=== PATIENT | female | born 1950 | race Hispanic/Latino ===

== ENCOUNTER 2019-11-03 06:55 | Inpatient (IN) | payer MEDICARE, OTHER ==
[2019-10-30 10:32] LABS: BASOPHILS % 0.5 % (0.0-1.0); EOSINOPHILS # (AUTO) 0.2 (0.0-0.4); EOSINOPHILS % 4.4 % (0.0-6.0); HEMATOCRIT 35.8 % (34.2-44.1); LYMPHOCYTES # (AUTO) 1.6 (1.0-3.2); LYMPHOCYTES % 38.5 % (18.0-39.1); MEAN CORPUSCULAR HEMOGLOBIN 30.8 pg (28-32); MEAN CORPUSCULAR HGB CONC 33.5 g/dL (31-35); MONOCYTES # (AUTO) 0.4 (0.2-0.8); MONOCYTES % 8.9 % (4.4-11.3); NEUTROPHILS # (AUTO) 1.9 (2.1-6.9); NEUTROPHILS % 47.5 % (38.7-80.0); PLATELET COUNT 334 x10e3/uL (140-360); RED BLOOD COUNT 3.89 x10e6/uL (3.6-5.1)
[2019-10-30 11:06] LABS: ALANINE AMINOTRANSFERASE 15 IU/L (0-55); ALBUMIN 4.5 g/dL (3.5-5.0); ALBUMIN/GLOBULIN RATIO 1.6 (0.8-2.0); ALKALINE PHOSPHATASE 89 IU/L (40-150); ANION GAP 12.5 mmol/L (8-16); BLOOD UREA NITROGEN 9 mg/dL (7-26); BUN/CREATININE RATIO 13 (6-25); CALCIUM 9.3 mg/dL (8.4-10.2); CARBON DIOXIDE 26 mmol/L (22-29); CHLORIDE 104 mmol/L (98-107); EST GLOMERULAR FILTRATION RATE > 60 ML/MIN (60-); GLUCOSE 111 mg/dL (74-118); POTASSIUM 4.5 mmol/L (3.5-5.1); SODIUM 138 mmol/L (136-145)
[~2019-11-03] VITALS: Ht 152.4 cm; Wt 63.0 kg
[~2019-11-03 06:55] MED LIST: AMLODIPINE BESY10 MG PO; AMLODIPINE BESYL5 MG PO; ATORVASTATIN CA20 MG PO; LOSARTAN POTAS100 MG PO; METFORMIN HCL500 MG PO; PROBIOTIC & AC1 EACH PO; VITAMIN D3250 MCG PO
[2019-11-03] MEDS ORDERED: METFORMIN HCL500 MG PO (08:27)
[2019-11-03] MEDS ORDERED: ESTROGENS CONJUGATED VAGINAL CR 45 GM TUBE PV ONE (08:45)
[2019-11-03] MEDS ORDERED: BUPIVACAINE 0.25% 30ML SDV INJ ONE ×2 (08:45→10:37)
[2019-11-03] MEDS ORDERED: CEFAZOLIN SOD 1 GM/NS 50ML 100 ML IV ONE (08:47)
[2019-11-03] MEDS ORDERED: ONDANSETRON HCL INJ 2MG/ML 2ML 2 MG/ML VIAL IV PRN (09:15)
[2019-11-03] MEDS ORDERED: DEXTROSE 50% SYRINGE 50 ML IV PRN (09:15)
[2019-11-03] MEDS ORDERED: DOCUSATE SODIUM 100 MG CAP PO PRN (09:15)
[2019-11-03] MEDS ORDERED: MEPERIDINE HCL INJ 25 MG/ML VIAL IV PRN (09:15)
[2019-11-03] MEDS ORDERED: ZOLPIDEM TARTRATE 5 MG TAB PO PRN (09:15)
[2019-11-03] MEDS ORDERED: DIPHENHYDRAMINE HCL 25 MG CAP PO PRN (09:15)
[2019-11-03] MEDS ORDERED: LEVOFLOXACIN 500MG/D5W 100ML 100 ML IV SCH ×2 (09:15→17:00)
[2019-11-03] MEDS ORDERED: PROMETHAZINE HCL (IM) 25 MG/ML VIAL IM PRN (09:15)
[2019-11-03] MEDS ORDERED: PROMETHAZINE 12.5MG/ NACL 0.9% 50 ML IV PRN (10:00)
[2019-11-03] MEDS ORDERED: FENTANYL CITRATE/PF 100MCG/2 ML INJ ONE ×2 (11:23→13:06)
[2019-11-03] MEDS ORDERED: MIDAZOLAM HCL 2 MG/2 ML VIAL ONE (13:06)
[2019-11-03 13:28] VITALS: BP 129/49
[2019-11-03 13:29] VITALS: BP 129/49
[2019-11-03] MEDS: LACTATED RINGER'S 1,000 ML IV SCH ×2 (14:02→17:15)
[2019-11-03 16:08] VITALS: BP 129/69
[2019-11-03] MEDS: HYDROCODONE/APAP 5MG-325MG TAB PO PRN (16:45)
[2019-11-03] MEDS ORDERED: PROPOFOL IV EMULSION 10 MG/ML 20 ML VIAL ONE (19:24)
[2019-11-03] MEDS ORDERED: NEOSTIGMINE 1 MG/ML 10ML VIAL ONE (19:24)
[2019-11-03] MEDS ORDERED: LIDOCAINE HCL 2% LOCAL INJ 5 ML SDV VIAL INJ ONE (19:24)
[2019-11-03] MEDS ORDERED: GLYCOPYRROLATE INJ 0.2 MG/ML VIAL ONE (19:24)
[2019-11-03] MEDS ORDERED: ROCURONIUM BROMIDE 10 MG/ML 5ML VIAL IV ONE (19:24)
[2019-11-03] MEDS ORDERED: ONDANSETRON HCL INJ 2MG/ML 2ML 2 MG/ML VIAL ONE (19:24)
[2019-11-03] MEDS ORDERED: DEXAMETHASONE SOD PHOS INJ 4 MG/ML VIAL ONE (19:24)
[2019-11-03] MEDS ORDERED: KETOROLAC TROMETHAMINE 30 MG/ML VIAL ONE (19:24)
[2019-11-03] MEDS ORDERED: SEVOFLURANE INHAL SOLN 250 ML PEN BTL ONE (19:24)
[2019-11-03 20:00] VITALS: BP 102/56
[2019-11-03 23:08] VITALS: BP 102/56
[2019-11-04] VITALS (8 sets, daily range): BP systolic 104–125; BP diastolic 47–57
[2019-11-04] MEDS: LACTATED RINGER'S 1,000 ML IV SCH ×3 (00:52→17:15)
[2019-11-04 05:52] LABS: BASOPHILS % 0.1 % (0.0-1.0); EOSINOPHILS % 0.1 % (0.0-6.0); LYMPHOCYTES # (AUTO) 1.4 (1.0-3.2); LYMPHOCYTES % 17.2 % (18.0-39.1); MEAN CORPUSCULAR HEMOGLOBIN 31.5 pg (28-32); MEAN CORPUSCULAR HGB CONC 34.5 g/dL (31-35); MEAN CORPUSCULAR VOLUME 91.2 fL (81-99); MONOCYTES # (AUTO) 0.8 (0.2-0.8); MONOCYTES % 9.3 % (4.4-11.3); NEUTROPHILS # (AUTO) 6.1 (2.1-6.9); NEUTROPHILS % 72.9 % (38.7-80.0); PLATELET COUNT 186 x10e3/uL (140-360); RED BLOOD COUNT 2.16 x10e6/uL (3.6-5.1); RED CELL DISTRIBUTION WIDTH 12.9 % (11.7-14.4)
[2019-11-04 06:03] LABS: HEMOGLOBIN 6.8 g/dL (12.0-16.0)
[2019-11-04 06:04] LABS: HEMATOCRIT 19.7 % (34.2-44.1)
[2019-11-04] MEDS ORDERED: SODIUM CHLORIDE 0.9% 250ML 250 ML IV SCH (07:00)
[2019-11-04] MEDS: METFORMIN HCL 500 MG TAB PO SCH (09:06)
[2019-11-04] MEDS: HYDROCODONE/APAP 5MG-325MG TAB PO PRN (13:44)
[2019-11-04] MEDS ORDERED: SODIUM CHLORIDE 0.9% 250ML 250 ML ONE (14:02)
[2019-11-04 20:00] LABS: HEMOGLOBIN 7.4 g/dL (12.0-16.0)
[2019-11-04 20:06] LABS: HEMATOCRIT 21.8 % (34.2-44.1)
[2019-11-04] MEDS ORDERED: SODIUM CHLORIDE 0.9% 250ML 250 ML IV ONE (20:30)
[2019-11-05] VITALS (7 sets, daily range): BP systolic 106–162; BP diastolic 54–78
[2019-11-05] MEDS: HYDROCODONE/APAP 5MG-325MG TAB PO PRN (04:15)
[2019-11-05 05:11] LABS: HEMATOCRIT 25.2 % (34.2-44.1); HEMOGLOBIN 8.5 g/dL (12.0-16.0)
[2019-11-05] MEDS: LACTATED RINGER'S 1,000 ML IV SCH ×3 (06:12→16:08)
[2019-11-05] MEDS: METFORMIN HCL 500 MG TAB PO SCH (08:14)
[2019-11-05] MEDS ORDERED: GLYCERIN ADULT 3 GM SUPP PR SCH (14:00)
[2019-11-05] MEDS ORDERED: SODIUM CHLORIDE 0.9% 0 ML ONE (14:04)
[2019-11-05] MEDS ORDERED: IOPAMIDOL 370 MG/ML 200 ML INFUS..BTL INJ ONE (14:04)
[2019-11-05 14:07] LABS: BASOPHILS % 0.5 % (0.0-1.0); EOSINOPHILS # (AUTO) 0.2 (0.0-0.4); EOSINOPHILS % 2.1 % (0.0-6.0); HEMATOCRIT 25.7 % (34.2-44.1); HEMOGLOBIN 8.8 g/dL (12.0-16.0); LYMPHOCYTES # (AUTO) 1.8 (1.0-3.2); LYMPHOCYTES % 21.7 % (18.0-39.1); MEAN CORPUSCULAR HEMOGLOBIN 30.8 pg (28-32); MEAN CORPUSCULAR HGB CONC 34.2 g/dL (31-35); MEAN CORPUSCULAR VOLUME 89.9 fL (81-99); MONOCYTES # (AUTO) 0.7 (0.2-0.8); MONOCYTES % 9.1 % (4.4-11.3); NEUTROPHILS # (AUTO) 5.4 (2.1-6.9); NEUTROPHILS % 66.1 % (38.7-80.0); PLATELET COUNT 156 x10e3/uL (140-360); RED BLOOD COUNT 2.86 x10e6/uL (3.6-5.1); RED CELL DISTRIBUTION WIDTH 14.5 % (11.7-14.4)
[2019-11-05] MEDS ORDERED: SODIUM CHLORIDE 0.9% 50ML 100 ML ONE (14:08)
[2019-11-05] MEDS: LOSARTAN POTASSIUM 100 MG TAB PO SCH (21:07)
[2019-11-06] VITALS (7 sets, daily range): BP systolic 125–167; BP diastolic 65–89
[2019-11-06] MEDS: LACTATED RINGER'S 1,000 ML IV SCH ×2 (01:15→09:05)
[2019-11-06 04:49] LABS: BASOPHILS % 0.5 % (0.0-1.0); EOSINOPHILS # (AUTO) 0.2 (0.0-0.4); EOSINOPHILS % 2.9 % (0.0-6.0); HEMATOCRIT 24.6 % (34.2-44.1); HEMOGLOBIN 8.2 g/dL (12.0-16.0); LYMPHOCYTES # (AUTO) 1.5 (1.0-3.2); LYMPHOCYTES % 24.6 % (18.0-39.1); MEAN CORPUSCULAR HEMOGLOBIN 30.3 pg (28-32); MEAN CORPUSCULAR HGB CONC 33.3 g/dL (31-35); MEAN CORPUSCULAR VOLUME 90.8 fL (81-99); MONOCYTES # (AUTO) 0.6 (0.2-0.8); MONOCYTES % 9.2 % (4.4-11.3); NEUTROPHILS # (AUTO) 3.9 (2.1-6.9); NEUTROPHILS % 62.3 % (38.7-80.0); PLATELET COUNT 165 x10e3/uL (140-360); RED BLOOD COUNT 2.71 x10e6/uL (3.6-5.1); RED CELL DISTRIBUTION WIDTH 14.2 % (11.7-14.4)
[2019-11-06] MEDS: HYDROCODONE/APAP 5MG-325MG TAB PO PRN (08:07)
[2019-11-06] MEDS: LOSARTAN POTASSIUM 100 MG TAB PO SCH (08:07)
[2019-11-06] MEDS: METFORMIN HCL 500 MG TAB PO SCH ×2 (08:07→08:45)
[2019-11-06] MEDS ORDERED: LEVOFLOXACIN 500MG/D5W 100ML 100 ML IV SCH (09:00)
[2019-11-06] MEDS ORDERED: LACTOBACILLUS ACIDOPHILUS CAPSULE PO SCH (09:00)
[2019-11-06] MEDS ORDERED: CHOLECALCIFEROL 400 UNIT TAB PO SCH (09:00)
[2019-11-06] MEDS ORDERED: FERROUS GLUCON324 M1 PO (11:44)
[2019-11-06] MEDS ORDERED: TYLENOL # 31 EA PO (12:08)
[2019-11-06] MEDS ORDERED: LEVOFLOXACIN250 MG PO (12:09)
[2019-11-06] MEDS ORDERED: COLACE100 MG PO (12:09)
== END 2019-11-06 13:47 | disposition home or self-care (01) | DRG 743 ==
LOC: OR 06:55 → PACU V 09:08 → MED/SURG 13:02 → OBSVTOIN 11-05 08:14
PROVIDERS: ADMIT Obstetrics & Gynecology; ATTEND Obstetrics & Gynecology
PROC: 0UT97ZZ Resection of Uterus, Via Natural or Artificial Opening (ICD-10-PCS; principal; 2019-11-04)
PROC: 0JQC0ZZ Repair Pelvic Region Subcutaneous Tissue and Fascia, Open Approach (ICD-10-PCS; 2019-11-04)
PROC: 0USG7ZZ Reposition Vagina, Via Natural or Artificial Opening (ICD-10-PCS; 2019-11-04)
PROC: 30233N1 Transfusion of Nonautologous Red Blood Cells into Peripheral Vein, Percutaneous Approach (ICD-10-PCS; 2019-11-04)
PROC: 0JQC0ZZ Repair Pelvic Region Subcutaneous Tissue and Fascia, Open Approach (ICD-10-PCS; 2019-11-04)
DX: N81.89 Other female genital prolapse (principal); Z11.59 Encounter for screening for other viral diseases; Z79.84 Long term (current) use of oral hypoglycemic drugs; N81.6 Rectocele; N81.10 Cystocele, unspecified; Z90.49 Acquired absence of other specified parts of digestive tract; E11.9 Type 2 diabetes mellitus without complications; I10 Essential (primary) hypertension
CPT/HCPCS: 36415; 71046; 74174; 76856; 80053; 82948; 85014; 85018; 85025; 86850; 86900; 86920; 88305; 88307; 93005; 96361; G0378; J0690; J1100; J1885; J1956; J2001; J2250; J2405; J2710; J3010; J7050; J7121; P9016; Q9967; U0002